=== PATIENT | female | born 1990 | race Caucasian/White ===

== ENCOUNTER 2016-05-05 00:59 | Emergency (ER) | payer OTHER ==
--- NOTE | 2016-05-05 01:36 | ED Physician Documentation ---
Abdominal Pain - HISTORIAN Historian: patient - HPI Stated Complaint: abd pain Chief Complaint: Abdominal Pain Additonal Information: Epigastric pain began yesterday. Thinks it is sharp, waxes and wanes, radiates to RUQ to right flank. Like the pain she had with her gall bladder prior to surgery. Ibuprofen 800 mg 4 hours ago improved pain. Diarrhea several times today. No nausea or fever. Gave six months ago with subsequent 6 weeks vag bleeding. No period since. No control. Onset: other (day) Context: denies: out of country travel, bad food, recent trauma Quality: sharp Associated Symptoms: diarrhea Exacerbated by: nothing Relieved by: other (above) - ROS CONST: no problems - SOCIAL HX Smoking History: cigarettes (1/2 PPD) - FAMILY HX Family History: no significant history (chronic bronchitis in smokers) - PAST HX Past History: gall stones (ashish) Ischemic Bowel Risk Factors: none Surgeries/Procedures: cholecystectomy Home Medications: Ambulatory Orders Medication Instructions Recorded Omeprazole 20 mg PO DAILY #30 capsule. 05/05/16 Allergies/Adverse Reactions: Allergies Allergy/AdvReac Type Severity Reaction Status Date / Time No Known Allergies Allergy Verified 05/05/16 01:07 - VITAL SIGNS Vital Signs: Vital Signs Temp Pulse Resp BP Pulse Ox 97.6 F 88 18 108/58 98 05/05/16 00:59 05/05/16 00:59 05/05/16 00:59 05/05/16 00:59 05/05/16 00:59 - REVIEWED ASSESSMENTS Nursing Assessment Reviewed: Yes Vitals Reviewed: Yes Progress - Progress Progress: Obstructive series with chest x-ray Clinical history: Epigastric pain radiating to the right flank. Findings: Examination of the chest single upright view demonstrates the lungs to be clear. Cardiovascular and mediastinal silhouettes are within normal limits. Examination of the abdomen in supine and upright views demonstrates gas in the colon. There is no obstruction or free air. Visualized visceral silhouettes are within normal limits. Impression: 1. Negative study. Electronically signed on May 05, 2016 2:34:44 AM CDT by: Sung Stern Pain greatly relieved by gi cocktail. All labs wnl. ED Results Lab/Radiology - Lab Results Lab Results: Lab Results 05/05/16 05/05/16 01:41 01:41 WBC 10.16 K/ul K/ul (4.00-12.00) RBC 5.04 M/ul M/ul (3.90-5.20) Hgb 14.6 g/dL g/dL (12.0-16.0) Hct 43.2 % % (34.5-46.5) MCV 85.6 fl fl (80.0-100.0) MCH 29.0 pg pg (28.0-34.0) MCHC 33.9 g/dL g/dL (30.0-36.0) RDW 14.5 % H % (11.3-14.3) Plt Count 297 K/mm3 K/mm3 (130-400) Neut % (Auto) 62.2 % % (39.0-79.0) Lymph % (Auto) 30.3 % % (16.0-50.0) Bland % (Auto) 3.8 % % (0.0-11.0) Eos % (Auto) 1.4 % % (0.0-6.8) Baso % (Auto) 0.4 (0.0-1.5) Neut # 6.3 # k/uL # k/uL (1.4-7.7) Lymph # 3.1 # k/uL # k/uL (0.6-4.0) Bland # 0.4 # k/uL # k/uL (0.0-0.9) Eos # 0.2 # k/uL # k/uL (0.0-0.6) Baso # 0.0 # k/uL # k/uL (0.0-0.5) Reactive Lymphs % 2.0 % % (0.0-5.0) Reactive Lymphs # 0.2 # k/uL # k/uL (0.0-0.8) Sodium 142 mmol/L mmol/L (136-145) Potassium 3.6 mmol/L mmol/L (3.5-5.0) Chloride 109 mmol/L mmol/L (98-110) Carbon Dioxide 28 mmol/L mmol/L (20-32) BUN 12 mg/dL mg/dL (10-26) Creatinine 0.7 mg/dL mg/dL (0.4-1.5) Estimated Creat Clear 272 Est GFR ( Amer) > 60 (60 - ) Est GFR (Non-Af Amer) > 60 (60 - ) Glucose 83 mg/dL mg/dL (70-99) Calcium 9.5 mg/dL mg/dL (8.5-10.5) Total Bilirubin 0.2 mg/dL mg/dL (0.2-1.2) AST 25 U/L U/L (0-41) ALT 35 U/L U/L (0-45) Alkaline Phosphatase 80 U/L U/L (46-116) Total Protein 7.4 g/dL g/dL (6.0-8.5) Albumin 4.6 g/dL g/dL (3.0-5.5) Amylase 35 U/L U/L (20-104) - Orders Orders: ED Orders Category Date Time Status Place Saline Lock/IV Now Care 05/05/16 01:40 Active ABD SERIES PA CHEST [RAD] Stat Exams 05/05/16 Taken AMYLASE Routine Lab 05/05/16 01:41 Completed CBC/PLATELET/DIFF Routine Lab 05/05/16 01:41 Completed CMP Routine Lab 05/05/16 01:41 Completed URINALYSIS Routine Lab 05/05/16 Ordered URINE HCG [URINE HCG] Stat Lab 05/05/16 01:25 Ordered Lidocaine 2%Visc 15ml [Xylocaine] Med 05/05/16 01:42 Discontinued 300 mg .ROUTE .STK-MED ONE Mag Hydrox/Al Hydrox/Simeth [Mylanta] 30 ml Med 05/05/16 01:32 Discontinued Lidocaine 2%Visc 15ml [Xylocaine] 20 mg PHENobarb/HYOSCY/ATROPINE/SCOP [] 10 ml PO NOW Magnesium Hydroxide/Al Hydrox [Maalox] Med 05/05/16 01:42 Discontinued 30 ml PO .STK-MED ONE Abdominal Pain Physical Exam - Physical Exam General Appearance: no acute distress, alert, other (morbidly obese) EENT: eye inspection normal, ENT inspection normal NECK: normal inspection, supple RESPIRATORY: no resp distress, breath sounds normal CVS: reg rate & rhythm, heart sounds normal ABDOMEN: soft, normal bowel sounds, non-tender RECTAL: deferred BACK: normal inspection SKIN: warm/dry, normal color EXTREMITIES: normal range of motion (gait) NEURO: CN's nml as tested, motor nml, sensation nml, cognition normal Vital Signs: Vital Signs Temp Pulse Resp BP Pulse Ox 97.6 F 88 18 108/58 98 05/05/16 00:59 05/05/16 00:59 05/05/16 00:59 05/05/16 00:59 05/05/16 00:59 Discharge Clincal Impression: Abdominal pain Qualifiers: Abdominal location: upper abdomen, unspecified Qualified Code(s): R10.10 - Upper abdominal pain, unspecified Additional Instructions: Return to the ER if you have pain you cannot control or you are unable to urinate for more than 8 hours. Home Medications: Ambulatory Orders Omeprazole 20 mg PO DAILY #30 capsule. 05/05/16 Condition: Good Disposition: 01 HOME, SELF-CARE Decision to Admit: NO Decision Time: 02:41
[2016-05-05] MEDS: MAG HYDROX/AL HYDROX/SIMETH 30 ML, Lidocaine 2%Visc 15ml 20 MG, PHENobarb/HYOSCY/ATROPI... PO ONE ×3 (01:40)
[2016-05-05] MEDS ORDERED: MAGNESIUM HYDROXIDE/AL HYDROX 30 ML UDC PO ONE (01:42)
[2016-05-05] MEDS ORDERED: Lidocaine 2%Visc 15ml 20 MG/ML UDC ONE (01:42)
[2016-05-05 02:14] LABS: BASOPHILS % 0.4 (0.0-1.5); EOSINOPHILS % 1.4 % (0.0-6.8); LYMPHOCYTES # 3.1 # k/uL (0.6-4.0); MONOCYTES # 0.4 # k/uL (0.0-0.9); MONOCYTES % 3.8 % (0.0-11.0); NEUTROPHILS # 6.3 # k/uL (1.4-7.7); eGFR (African) > 60; eGFR (Non-African) > 60
[2016-05-05] MEDS: PANTOPRAZOLE SODIUM 40 MG TABLET PO ONE (02:42)
[2016-05-05 02:56] VITALS: BP 111/59
[2016-05-05 06:02] LABS: APPEARANCE,URINE CLEAR (CLEAR); COLOR,URINE YELLOW (YELLOW)
[2016-05-05 06:03] LABS: OCCULT BLOOD,URINE TRACE-INTACT (NEGATIVE); UROBILINOGEN URINE 0.2 Eu (0.2-1.0)
--- NOTE | 2016-05-05 06:57 | Diagnostic Imaging Report ---
Report Submission Date: May 05, 2016 2:34:44 AM CDT Patient ~ Study Name: MARIANNA NELSON ~ Date: May 05, 2016 1:55:42 AM CDT ~ Modality Type: CR Gender: F ~ Description: ABDOMEN : 86 ~ Institution: [facility] Physician: KATHLEEN NELSON ~ ~ ~ ~ Obstructive series with chest x-ray Clinical history: ~Epigastric pain radiating to the right flank. Findings: ~Examination of the chest single upright view demonstrates the lungs to be clear. ~Cardiovascular and mediastinal silhouettes are within normal limits. Examination of the abdomen in supine and upright views demonstrates gas in the colon. ~There is no obstruction or free air. ~Visualized visceral silhouettes are within normal limits. Impression: 1. ~Negative study. ~ Electronically signed on May 05, 2016 2:34:44 AM CDT by: Sung HA
== END 2016-05-05 02:46 | disposition home or self-care (01) ==
LOC: ED 00:59
DX: R10.10 Upper abdominal pain, unspecified (principal)
CPT/HCPCS: 74022; 80053; 81002; 81025; 82150; 85025; A9270; 99283; S1016

== ENCOUNTER 2016-12-19 12:42 | Emergency (ER) | payer OTHER ==
--- NOTE | 2016-12-19 12:48 | ED Physician Documentation ---
General Adult - HISTORIAN Historian: patient - HPI Stated Complaint: knot under L arm Chief Complaint: General Adult Onset: days ago Timing: still present Severity: moderate Further Comments: yes (Pt is a 26 yo female with a small, tender swelling in L axilla. No fever or systemic sx.) - ROS CONST: no problems EYES/ENT: none CVS/RESP: none GI/: none MS/SKIN/LYMPH: other (small abscess L axilla) - PAST HX Past History: other (GERD) Surgeries/Procedures: cholecystectomy Allergies/Adverse Reactions: Allergies Allergy/AdvReac Type Severity Reaction Status Date / Time No Known Allergies Allergy Verified 12/19/16 13:00 Home Medications: Ambulatory Orders Medication Instructions Recorded Amoxicillin [Trimox] 500 mg PO Q12H #20 capsule 12/19/16 NK [NK] 12/19/16 - SOCIAL HX Smoking History: cigarettes - FAMILY HX Family History: No - VITAL SIGNS Vital Signs: Vital Signs Temp Pulse Resp BP Pulse Ox 111/59 05/05/16 02:48 - REVIEWED ASSESSMENTS Nursing Assessment Reviewed: Yes Vitals Reviewed: Yes Progress - Progress Progress: Rx Amoxicillin 500 mg. Take one tablet by mouth every 12 hrs for 10 days General Adult Physical Exam - PHYSICAL EXAM GENERAL APPEARANCE: no distress NECK: normal inspection, supple RESPIRATORY: no resp distress, chest non-tender, breath sounds normal CVS: reg rate & rhythm, heart sounds normal BACK: normal inspection SKIN: other (small, 1 cm, abscess, L axilla) EXTREMITIES: non-tender, normal range of motion, no evidence of injury NEURO: oriented X3, motor nml, sensation nml Discharge Clincal Impression: small abscess L axilla Prescriptions: Amoxicillin [Trimox] 500 mg PO Q12H #20 capsule Referrals: Primary Doctor,No [Primary Care Provider] - Condition: Good Disposition: 01 HOME, SELF-CARE Decision to Admit: NO Decision Time: 13:05
[2016-12-19 13:09] VITALS: BP 94/59
== END 2016-12-19 13:02 | disposition home or self-care (01) ==
LOC: ED 12:42
DX: L02.412 Cutaneous abscess of left axilla (principal)
CPT/HCPCS: 99283

== ENCOUNTER 2017-07-05 22:17 | Emergency (ER) | payer OTHER ==
--- NOTE | 2017-07-05 22:48 | ED Physician Documentation ---
Foot Injury - HISTORIAN Historian: patient - HPI Stated Complaint: "My rt foot/toes hurt" Chief Complaint: Lower Extremity Problem Additional Information: pt has chronic back pain she recently has job where she is on feet usually standing and appears to have assoc pain numbness rt fore foot. wearing CROCKS seems to help but is wearing tennis shoes at work Onset: days ago (10-15) Where: work Severity: moderate Associated Symptoms:: tingling, numbness distally Modifying Factors:: pain on movement (and standing) - ROS CONST: no problems (except morbid obesity assoc w/ ch back pain) CVS/RESP: none NEURO: denies: headache, head injury, dizziness GI/: denies: problems urinating MS/SKIN/LYMPH: back pain. denies: neck pain, foot swelling, ankle swelling, rash (chronic back pain w/obesity wt = 270 ht 5' 2 in-she h is loosing wt and back seems to be improving the foot problem std when she std this job and wears tennis shoes rather than crocks which she is accoustemed to wearing) - PAST HX Past History: other (see RASH above) Allergies/Adverse Reactions: Allergies Allergy/AdvReac Type Severity Reaction Status Date / Time No Known Allergies Allergy Verified 07/05/17 22:37 Home Medications: Ambulatory Orders Medication Instructions Recorded Atorvastatin Calcium 20 mg PO DAILY 07/05/17 - SOCIAL HX Smoking History: greater than 1 pack/day Alcohol Use: none Drug Use: none - FAMILY HX Family History: no significant history - VITAL SIGNS Vital Signs: Vital Signs Temp Pulse Resp BP Pulse Ox 97.6 F 89 12 123/59 96 07/05/17 22:30 07/05/17 22:30 07/05/17 22:30 07/05/17 22:30 07/05/17 22:30 - REVIEWED ASSESSMENTS Nursing Assessment Reviewed: Yes Vitals Reviewed: Yes Foot Injury Physical Exam - Physical Exam General Appearance: mild distress Gait: limited by pain, other (foot is w/o swelling and neurovascular appears intact--DTR equal bilat) Neuro: sensation nml, motor nml Vascular: no vascular compromise, dorsalis pedis (ok). No: pallor, cool skin, abnml cap refill Tendons: tendon function nml Leg/Knee/Thigh: No: limited ROM Skin: intact, warm. No: crepitus, diaphoresis, decubitus, dry Neck/Back: nml inspection Resp/CVS: chest non-tender, breath sounds nml, heart sounds nml Abdomen: non-tender Discharge Clincal Impression: sciatica due to ch back pain, obesity Referrals: Primary Doctor,No [Primary Care Provider] - 2 Days Comments: IBU 600 tid rec cont wt loss wear crocks if this helps-perhaps better arch in tennis shoes Condition: Good Disposition: 01 HOME, SELF-CARE Decision to Admit: NO Decision Time: 22:57
[2017-07-05 22:54] VITALS: BP 108/68
== END 2017-07-05 23:00 | disposition home or self-care (01) ==
LOC: ED 22:17
DX: M54.30 Sciatica, unspecified side (principal); M54.5 Low back pain; E66.9 Obesity, unspecified
CPT/HCPCS: 99282

== ENCOUNTER 2017-08-13 01:19 | Emergency (ER) | payer OTHER ==
[2017-08-13 01:38] VITALS: BP 117/81
--- NOTE | 2017-08-13 02:15 | ED Physician Documentation ---
Lower Extremity Problem - HPI Stated Complaint: Right foot pain Chief Complaint: Lower Extremity Problem Additional Information: Right foot pain for weeks. On her feet a lot at work. She thought crocs shoes made her feel better, but pain is worse in spite of wearing them. Saw her PCP since last visit in ER and was told to wear quality shoe with good support. No other treatments attempted. No other associated signs. Thinks she is right- footed. Location of Injury: R foot - ROS CONST: no problems - PAST HX Past History: none Allergies/Adverse Reactions: Allergies Allergy/AdvReac Type Severity Reaction Status Date / Time No Known Allergies Allergy Verified 08/13/17 01:37 Home Medications: Ambulatory Orders Medication Instructions Recorded NK [NK] 08/13/17 - SOCIAL HX Smoking History: non-smoker - FAMILY HX Family History: no significant history - VITAL SIGNS Vital Signs: Vital Signs Temp Pulse Resp BP Pulse Ox 97.8 F 85 18 117/81 98 08/13/17 01:20 08/13/17 01:20 08/13/17 01:20 08/13/17 01:20 08/13/17 01:20 - REVIEWED ASSESSMENTS Nursing Assessment Reviewed: Yes Vitals Reviewed: Yes Lower Extremity Problem - EXAM General Appearance: obese Hips: bilateral hip: no evidence of injury Legs: bilateral: no evidence of injury Knees: bilateral: no evidence of injury Ankle: bilateral: normal inspection, normal range of motion, no evidence of injury Foot: right foot: other (thin white callus formation just proximal to 1st MTP, sole of right foot. Erythema proximal to callus. tender to palpation. DP and PT 2+. ), left foot: normal inspection, no evidence of injury Neuro/Tendon: normal sensation, normal motor functions EENT: eye inspection normal, ENT inspection normal RESPIRATORY: no resp distress JOINT: joints nml, nml ROM VASCULAR: no vascular compromise NEURO/PSYCH: CN's nml as tested, motor nml, sensation nml SKIN: warm/dry, normal color BACK: normal inspection Discharge Clincal Impression: Foot pain, right Referrals: Gurwinder Kaminski MD [Primary Care Provider] - 2 Days Additional Instructions: Shoes that provide good support and stabilization, such as athletic shoes, should provide you with eventual relief. You should keep the foot elevated as much as possible when you are not at work. You can apply ice to the sore area for 30 minutes of each hour you are awake. Condition: Good Disposition: 01 HOME, SELF-CARE Decision to Admit: NO Decision Time: 02:15
== END 2017-08-13 02:25 | disposition home or self-care (01) ==
LOC: ED 01:19
DX: M79.671 Pain in right foot (principal)
CPT/HCPCS: 99282

== ENCOUNTER 2017-09-04 17:20 | Emergency (ER) | payer OTHER ==
[2017-09-04 17:33] VITALS: BP 112/66
--- NOTE | 2017-09-04 17:50 | ED Physician Documentation ---
Sore Throat/Dental Pain - HISTORIAN Historian: patient - HPI Stated Complaint: DENTAL PAIN Chief Complaint: Dental Pain Additional Information: Dental pain for two days. Has had problems with wisdom teeth in the past. Knows they will have to be surgically extracted and this can't happen till December. Has been taking 800 mg ibuprofen BID w/o relief. No recent antibiotics. No other modifying factors or associated signs. Context: Possible Infection - ROS CONST: no problems - PAST HX Past History: none Allergies/Adverse Reactions: Allergies Allergy/AdvReac Type Severity Reaction Status Date / Time No Known Allergies Allergy Verified 09/04/17 17:33 Home Medications: Ambulatory Orders Medication Instructions Recorded Acetaminophen with Codeine 1 each PO Q4H PRN #15 tablet 09/04/17 [Tylenol with Codeine #3 Tablet] Penicillin V Potassium [Pen V K] 500 mg PO Q8H #30 tablet 09/04/17 - SOCIAL HX Smoking History: non-smoker - FAMILY HX Family History: No - VITAL SIGNS Vital Signs: Vital Signs Temp Pulse Resp BP Pulse Ox 98.1 F 72 20 112/66 99 09/04/17 17:43 09/04/17 17:43 09/04/17 17:43 09/04/17 17:43 09/04/17 17:43 - REVIEWED ASSESSMENTS Nursing Assessment Reviewed: Yes Vitals Reviewed: Yes Dental Pain Physical Exam - EXAM General Appearance: alert, moderate distress Head/Neck: head nml inspection, no lymphadenopathy, other (tender to palpation over bilateral TMJ areas) Eyes: eyes nml inspection Mouth/Throat: lips nml, gums nml (except swollen about #17 and #32), voice nml, no drooling, no air way problems Ear/Nose: nml inspection Respiratory: no resp. distress Extremities: nml ROM (gait and stance) Skin: warm/dry, normal color Neuro/Psych: none Discharge Clincal Impression: Dentalgia Prescriptions: Acetaminophen with Codeine [Tylenol with Codeine #3 Tablet] 1 each PO Q4H PRN # 15 tablet PRN Reason: Pain Penicillin V Potassium [Pen V K] 500 mg PO Q8H #30 tablet Referrals: Gurwinder Kaminski MD [Primary Care Provider] - 2 Days Condition: Good Disposition: 01 HOME, SELF-CARE Decision to Admit: NO Decision Time: 17:55
== END 2017-09-04 18:05 | disposition home or self-care (01) ==
LOC: ED 17:20
DX: K02.9 Dental caries, unspecified (principal)
CPT/HCPCS: 99282

== ENCOUNTER 2017-09-13 20:05 | Emergency (ER) | payer OTHER ==
[2017-09-13] MEDS ORDERED: CLINDAMYCIN HCL 150 MG CAPSULE PO ONE (20:22)
[2017-09-13] MEDS ORDERED: HYDROcodone /APAP 5/325 1 EACH TABLET PO ONE (20:23)
--- NOTE | 2017-09-13 20:28 | ED Physician Documentation ---
General Adult - HISTORIAN Historian: patient - HPI Stated Complaint: dental pain, rash on low abd Chief Complaint: General Adult Onset: days ago Timing: still present Severity: moderate Further Comments: yes (Pt is a 27 yo female with dental pain in the R lower rear molar x 1 day. Pt has a wisdom tooth that is to be extracted, but also has dental caries with exposed dentin in the L R rear molar.) - ROS CONST: other (malaise) EYES/ENT: other (dental pain) CVS/RESP: none GI/: none MS/SKIN/LYMPH: none - PAST HX Past History: other (cholecystectomy) Surgeries/Procedures: cholecystectomy Allergies/Adverse Reactions: Allergies Allergy/AdvReac Type Severity Reaction Status Date / Time codeine AdvReac Nausea/Vomi Verified 09/13/17 20:30 ting Home Medications: Ambulatory Orders Medication Instructions Recorded Penicillin V Potassium [Pen V K] 500 mg PO Q8H #30 tablet 09/04/17 - SOCIAL HX Smoking History: cigarettes - FAMILY HX Family History: No - VITAL SIGNS Vital Signs: Vital Signs Temp Pulse Resp BP Pulse Ox 112/66 09/04/17 17:43 - REVIEWED ASSESSMENTS Nursing Assessment Reviewed: Yes Vitals Reviewed: Yes Progress - Progress Progress: Rx Clindamycin 300 mg. Take one every 12 hours for 10 days. Rx [place] (5/325). Take one or two every 4 to 6 hours as needed for moderate to severe pain. f/u dentist/oral surgeon. ED Results Lab/Radiology - Orders Orders: ED Orders Category Date Time Status Clindamycin HCl [Cleocin] Med 09/13/17 20:22 Once 300 mg PO NOW ONE HYDROcodone /APAP 5/325 [[place] 5/325] Med 09/13/17 20:23 Once 4 each PO NOW ONE General Adult Physical Exam - PHYSICAL EXAM GENERAL APPEARANCE: mild distress EENT: other (poor dentition, tenderness R Lower rear molar) NECK: normal inspection, supple RESPIRATORY: no resp distress, chest non-tender, breath sounds normal CVS: reg rate & rhythm, heart sounds normal BACK: normal inspection SKIN: warm/dry EXTREMITIES: non-tender, normal range of motion, no evidence of injury NEURO: oriented X3, motor nml, sensation nml Discharge Clincal Impression: dental pain Referrals: Gurwinder Kaminski MD [Primary Care Provider] - Condition: Stable Disposition: 01 HOME, SELF-CARE Decision to Admit: NO Decision Time: 20:28
[2017-09-13 20:37] VITALS: BP 109/60
== END 2017-09-13 20:41 | disposition home or self-care (01) ==
LOC: ED 20:05
DX: K08.89 Other specified disorders of teeth and supporting structures (principal)
CPT/HCPCS: 99283; A9270

== ENCOUNTER 2017-11-27 14:48 | Emergency (ER) | payer OTHER ==
[2017-11-27 15:00] VITALS: BP 132/84
--- NOTE | 2017-11-27 15:13 | ED Physician Documentation ---
General Adult - HISTORIAN Historian: patient - HPI Stated Complaint: dental pain Chief Complaint: General Adult Onset: hours Timing: still present Severity: moderate Further Comments: yes (Pt is a 27 yo female with dental pain in a fractured tooth in the lower R jaw. Pt has an appointment in in a few weeks, but pain flared up last night. No fever, n/v.) - ROS CONST: no problems EYES/ENT: other (dental pain) CVS/RESP: none GI/: none MS/SKIN/LYMPH: none - PAST HX Past History: other (cholecystectomy) Allergies/Adverse Reactions: Allergies Allergy/AdvReac Type Severity Reaction Status Date / Time codeine AdvReac Nausea/Vomi Verified 11/27/17 15:00 ting Home Medications: Ambulatory Orders Medication Instructions Recorded NK 11/27/17 - SOCIAL HX Smoking History: cigarettes - FAMILY HX Family History: No - VITAL SIGNS Vital Signs: Vital Signs Temp Pulse Resp BP Pulse Ox 96.6 F L 80 16 132/84 11/27/17 14:53 11/27/17 14:53 11/27/17 14:53 11/27/17 14:53 - REVIEWED ASSESSMENTS Nursing Assessment Reviewed: Yes Vitals Reviewed: Yes Progress - Progress Progress: Rx Clindamycin 300 mg. Take one every 8 hours for 10 days. Rx [place] (5/325). Take one or two every 4 to 6 hours as needed for moderate to severe pain. General Adult Physical Exam - PHYSICAL EXAM GENERAL APPEARANCE: moderate distress EENT: pharynx normal, other (fx tooth, R rear molar, tenderness) NECK: normal inspection, supple RESPIRATORY: no resp distress, chest non-tender, breath sounds normal CVS: reg rate & rhythm, heart sounds normal BACK: normal inspection SKIN: warm/dry, normal color EXTREMITIES: non-tender, normal range of motion, no evidence of injury NEURO: oriented X3, motor nml, sensation nml Discharge Clincal Impression: Pain, dental Referrals: Gurwinder Kaminski MD [Primary Care Provider] - Condition: Good Disposition: 01 HOME, SELF-CARE Decision to Admit: NO Decision Time: 15:17
== END 2017-11-27 15:17 | disposition home or self-care (01) ==
LOC: ED 14:48
DX: K08.89 Other specified disorders of teeth and supporting structures (principal)

== ENCOUNTER 2018-01-15 00:34 | Emergency (ER) | payer OTHER ==
--- NOTE | 2018-01-15 00:44 | ED Physician Documentation ---
General Adult - HISTORIAN Historian: patient - HPI Stated Complaint: right breast pain Chief Complaint: General Adult Onset: days ago (1) Timing: still present, worse Severity: mild Further Comments: no - ROS CONST: no problems EYES/ENT: none CVS/RESP: none GI/: none MS/SKIN/LYMPH: none - PAST HX Past History: none Other History: none Surgeries/Procedures: none Allergies/Adverse Reactions: Allergies Allergy/AdvReac Type Severity Reaction Status Date / Time codeine AdvReac Nausea/Vomi Verified 01/15/18 00:50 ting Home Medications: Ambulatory Orders Medication Instructions Recorded Cephalexin [Keflex] 500 mg PO TID #21 capsule 01/15/18 Omeprazole 20 mg PO DAILY 01/15/18 - SOCIAL HX Smoking History: non-smoker Alcohol Use: none Drug Use: none - FAMILY HX Family History: No - VITAL SIGNS Vital Signs: Vital Signs Temp Pulse Resp BP Pulse Ox 132/84 11/27/17 15:17 - REVIEWED ASSESSMENTS Nursing Assessment Reviewed: Yes Vitals Reviewed: Yes General Adult Physical Exam - PHYSICAL EXAM GENERAL APPEARANCE: no distress EENT: VILMA NECK: normal inspection, supple RESPIRATORY: no resp distress, breath sounds normal CVS: reg rate & rhythm, heart sounds normal ABDOMEN: soft, normal bowel sounds SKIN: warm/dry, other (right medial nipple with 5 mm round area redness/swelling) EXTREMITIES: non-tender NEURO: oriented X3, motor nml Discharge Clincal Impression: Folliculitis Prescriptions: Cephalexin [Keflex] 500 mg PO TID #21 capsule Referrals: Gurwinder Kaminski MD [Primary Care Provider] - 2 Days Condition: Stable Decision to Admit: NO Date of Decison to Admit: 01/15/18 Decision Time: 00:56
[2018-01-15 01:12] VITALS: BP 115/78
== END 2018-01-15 01:10 ==
LOC: ED 00:34
DX: L73.9 Follicular disorder, unspecified (principal)
CPT/HCPCS: 99281

== ENCOUNTER 2018-01-29 13:49 | Emergency (ER) | payer OTHER ==
[2018-01-29 14:04] VITALS: BP 138/90
[2018-01-29] MEDS ORDERED: traMADol HCL 50 MG TABLET PO ONE (14:36)
[2018-01-29] MEDS ORDERED: CLINDAMYCIN HCL 150 MG CAPSULE PO STA (14:37)
[2018-01-29] MEDS ORDERED: LIDOCAINE HCL 2% VISC. ORAL 300MG/15ML UDC PO STA (14:42)
[2018-01-29] MEDS ORDERED: ACETAMINOPHEN ORAL SOLUTION 325 MG/10.15 ML CUP PO STA (14:43)
[2018-01-29] MEDS ORDERED: LIDOCAINE HCL 2% VISC. ORAL 300MG/15ML UDC PO ONE (14:48)
--- NOTE | 2018-01-29 14:48 | ED Physician Documentation ---
Sore Throat/Dental Pain - HISTORIAN Historian: patient - HPI Stated Complaint: Dental pain Chief Complaint: Dental Pain Additional Information: Intro self as [employer]. pt presents to the ED via POV c/o dental pain x 6 months worse today. /10 aching and sharp worse with movement and cold drinks. denies other symptoms or complaints. has dental surgery scheduled for next week. pt denies current chest pain, dyspnea, syncope/near syncope, headache, dizziness, visual disturbances, n/v/d, fever/chills, rash, sick contacts, dysuria, trauma. melena or hematochezia, bleeding or easy bruising, change in bowel or bladder function, no recent weight loss/gain, anxiety or depression. ROS Negative unless otherwise specified. - ROS CONST: no problems - PAST HX Past History: none, other (dental caries ) Allergies/Adverse Reactions: Allergies Allergy/AdvReac Type Severity Reaction Status Date / Time codeine AdvReac Nausea/Vomi Verified 01/29/18 13:59 ting Home Medications: Ambulatory Orders Medication Instructions Recorded Omeprazole 20 mg PO DAILY 01/15/18 - SOCIAL HX Smoking History: less than 1 pack/day Alcohol Use: none Drug Use: none - FAMILY HX Family History: No - VITAL SIGNS Vital Signs: Vital Signs Temp Pulse Resp BP Pulse Ox 97.7 F 82 18 138/90 99 01/29/18 14:01 01/29/18 14:01 01/29/18 14:01 01/29/18 14:01 01/29/18 14:01 - REVIEWED ASSESSMENTS Nursing Assessment Reviewed: Yes Vitals Reviewed: Yes ED Results Lab/Radiology - Orders Orders: ED Orders Category Date Time Status Acetaminophen [Tylenol] Med 01/29/18 14:43 Stat 650 mg PO NOW STA Clindamycin HCl [Cleocin] Med 01/29/18 14:37 Stat 300 mg PO NOW STA Lidocaine 2%Visc 15ml [Xylocaine] Med 01/29/18 14:42 Stat 15 mg PO NOW STA traMADol HCL [Ultram] Med 01/29/18 14:36 Once 50 mg PO NOW ONE Dental Pain Physical Exam - EXAM General Appearance: no acute distress, alert Head/Neck: head nml inspection, trachea midline, no lymphadenopathy, thyroid nml, neck nml inspection. No: cervical lymphadenopathy Eyes: eyes nml inspection, PERRL Mouth/Throat: lips nml, gums nml, pharynx nml, voice nml, no drooling, no air way problems, no thrush, membranes nml, dental tenderness, gum swelling around teeth (decay at #31. mild erythema and edema localized. ) Ear/Nose: nml inspection Respiratory: no resp. distress Abdomen: soft, no organomegaly, normal bowel sounds, no abdominal bruit, no distension Extremities: non-tender, nml ROM Skin: normal color, warm/dry, NR, INT, PAL, DR Neuro/Psych: none Discharge Clincal Impression: Pain, dental, Infected dental caries Additional Instructions: Keep your appointment for dental surgery next week. Clindamycin 300 mg four times a day for 5 days. Dental Ball: Lidocaine and tylenol-soak a cotton ball in this and place in inner cheek for up to 2 hours. do not sleep with this in. seek medical care immediately if difficult to wake, difficulty breathing, feeling faint or fainting, increased rash, chest pain, shortness of breath, or fever not controlled by tylenol/motrin or any concern. follow up with primary care next week or before if not improving as expected. PLEASE UNDERSTAND THAT THIS IS AN EMERGENCY EVALUATION FOR YOUR COMPLAINT AND BY NATURE IS LIMITED AND NOT A SUBSTITUTE FOR ONGOING MEDICAL CARE. EVEN THOUGH TEST RESULTS AND TREATMENT PLAN WERE EXPLAINED THERE MAY BE A NEED FOR ADDITIONAL TESTING TO FULLY DETERMINE THE EXTENT OF YOUR ILLNESS/INJURY/OR CONCERN SO YOU SHOULD CONTACT AND OR ESTABLISH WITH A PRIMARY CARE PROVIDER (OR REFERRAL DOCTOR IF APPLICABLE) FOR AN APPOINTMENT SOON POSSIBLE Condition: Good Disposition: 01 HOME, SELF-CARE Decision to Admit: NO Date of Decison to Admit: 01/29/18 Decision Time: 14:51
[2018-01-29] MEDS ORDERED: LIDOCAINE HCL 2% VISC. ORAL 300MG/15ML UDC ONE (14:50)
== END 2018-01-29 15:07 | disposition home or self-care (01) ==
LOC: ED 13:49
DX: K02.9 Dental caries, unspecified (principal); K04.7 Periapical abscess without sinus
CPT/HCPCS: 99282; 99283; A9270

== ENCOUNTER 2018-02-08 08:16 | Emergency (ER) | payer OTHER ==
[2018-02-08 08:42] VITALS: BP 116/81
[2018-02-08] MEDS ORDERED: LIDOCAINE HCL 2% VISC. ORAL 300MG/15ML UDC PO ONE (08:45)
[2018-02-08] MEDS ORDERED: ACETAMINOPHEN ORAL SOLUTION 325 MG/10.15 ML CUP PO ONE (08:45)
--- NOTE | 2018-02-08 08:47 | ED Physician Documentation ---
Sore Throat/Dental Pain - HISTORIAN Historian: patient - HPI Stated Complaint: Dental pain Chief Complaint: Dental Pain Additional Information: Patient presents to ED with left lower jaw pain after having both lower wisdom teeth pulled a week ago. She states she tried to smoke some cigarettes but could not do it due to the pain. She has used up 25 Azle tablets and started using Ibupprofen for the pain. She is still on Clindamycin. Context: Other (wisdom tooth extraction. ) Associated Symptoms: denies: fever Worsened By: heat, cold - ROS CONST: denies: no problems CVS/RESP: none GI/: denies: nausea, vomiting MS/SKIN/LYMPH: denies: muscle aches, rash NEURO/PSYCH: denies: headache - PAST HX Past History: dental surgery Allergies/Adverse Reactions: Allergies Allergy/AdvReac Type Severity Reaction Status Date / Time codeine AdvReac Nausea/Vomi Verified 02/08/18 08:34 ting Home Medications: Ambulatory Orders Medication Instructions Recorded Clindamycin HCl 300 mg PO Q8H 02/08/18 - SOCIAL HX Smoking History: cigarettes, greater than 1 pack/day Alcohol Use: none Drug Use: none - FAMILY HX Family History: No - VITAL SIGNS Vital Signs: Vital Signs Temp Pulse Resp BP Pulse Ox 97.2 F L 69 18 116/81 99 02/08/18 08:37 02/08/18 08:37 02/08/18 08:37 02/08/18 08:37 02/08/18 08:37 - REVIEWED ASSESSMENTS Nursing Assessment Reviewed: Yes Vitals Reviewed: Yes ED Results Lab/Radiology - Orders Orders: ED Orders Category Date Time Status Acetaminophen [Tylenol] Med 02/08/18 08:45 Once 325 mg PO NOW ONE Lidocaine 2%Visc 15ml [Xylocaine] Med 02/08/18 08:45 Once 15 mg PO NOW ONE Dental Pain Physical Exam - EXAM General Appearance: no acute distress, alert Head/Neck: mandibular swelling (L) Eyes: PERRL Mouth/Throat: dental tenderness (left lower jaw). No: voice nml, no drooling Respiratory: no resp. distress, breath sounds nml CVS: reg. rate & rhythm, heart sounds nml Abdomen: soft Extremities: non-tender Skin: warm/dry, normal color Neuro/Psych: none Discharge Clincal Impression: Pain, dental Referrals: Gurwinder Kaminski MD [Primary Care Provider] - 2 Days Additional Instructions: 1. Apply dental balls as needed for pain 2. Tylenol and/or ibuprofen may be taken as needed in addition to Tramadol 3. Continue to take Clindamycin 4. Follow up Dentist as soon as possible 5. Return to ED for new or worsening symptoms. Condition: Stable Disposition: 01 HOME, SELF-CARE Decision to Admit: NO Date of Decison to Admit: 02/08/18 Decision Time: 08:54
== END 2018-02-08 09:04 | disposition home or self-care (01) ==
LOC: ED 08:16
DX: K08.89 Other specified disorders of teeth and supporting structures (principal); Z98.818 Other dental procedure status; Z72.0 Tobacco use
CPT/HCPCS: 99282; 99283; A9270

== ENCOUNTER 2018-02-21 14:40 | Emergency (ER) | payer OTHER ==
--- NOTE | 2018-02-21 14:50 | ED Physician Documentation ---
General Adult - HISTORIAN Historian: patient - HPI Stated Complaint: reflux Chief Complaint: General Adult Onset: days ago (2) Timing: still present Severity: mild Further Comments: yes (reports she had one episode of vomiting yesterday am and has had "a few " loose stools. Denies any fever. No nausea currently but after food. She states she is sure this is her reflux due to being out of her meds. She has an upcoming appt with her PCP for a prescription. No other complaints) Last known Well Code/Unknown Code: Unknown - ROS CONST: no problems CVS/RESP: none GI/: abdominal pain, nausea, diarrhea. denies: problems urinating MS/SKIN/LYMPH: denies: rash NEURO/PSYCH: headache - PAST HX Past History: other (GERD ) Immunizations: UTD Allergies/Adverse Reactions: Allergies Allergy/AdvReac Type Severity Reaction Status Date / Time codeine AdvReac Nausea/Vomi Verified 02/08/18 08:34 ting Home Medications: Ambulatory Orders Medication Instructions Recorded Clindamycin HCl 300 mg PO Q8H 02/08/18 Tramadol HCl [Ultram] 50 mg PO TID #15 tablet 02/08/18 - SOCIAL HX Smoking History: cigarettes Alcohol Use: none Drug Use: none - FAMILY HX Family History: No - VITAL SIGNS Vital Signs: Vital Signs Temp Pulse Resp BP Pulse Ox 116/81 02/08/18 09:04 - REVIEWED ASSESSMENTS Nursing Assessment Reviewed: Yes Vitals Reviewed: Yes General Adult Physical Exam - PHYSICAL EXAM GENERAL APPEARANCE: no distress EENT: eye inspection normal, ENT inspection normal, no signs of dehydration NECK: normal inspection RESPIRATORY: no resp distress, chest non-tender, breath sounds normal CVS: reg rate & rhythm, heart sounds normal, equal pulses ABDOMEN: soft, normal bowel sounds, no distension, non-tender BACK: normal inspection SKIN: warm/dry, normal color EXTREMITIES: non-tender, normal range of motion, no edema NEURO: oriented X3 Discharge Clincal Impression: Reflux esophagitis Referrals: Gurwinder Kaminski MD [Primary Care Provider] - 2 Days Comments: 1. Omperazole 20 mg take 1 by mouth daily 2. Zofran 4 mg take 1 by mouth every 8 hours as needed for nausea 3. Increase fluids 4. Cross diet 5. Follow up with PCP for prescriptions 6. Return to ER for any concerns Condition: Stable Disposition: HOME, SELF-CARE Decision to Admit: NO Date of Decison to Admit: 02/21/18 Decision Time: 15:06
[2018-02-21 15:01] VITALS: BP 104/72
== END 2018-02-21 15:20 | disposition home or self-care (01) ==
LOC: ED 14:40
DX: K21.0 Gastro-esophageal reflux disease with esophagitis (principal)
CPT/HCPCS: 99281; 99282

== ENCOUNTER 2018-06-28 00:38 | Emergency (ER) | payer SELFPAY ==
[2018-06-28] MEDS ORDERED: traMADol HCL 50 MG TABLET PO ONE (01:13)
--- NOTE | 2018-06-28 01:15 | ED Physician Documentation ---
Abdominal Pain - HPI Stated Complaint: Right Flank Pain Chief Complaint: Abdominal Pain Additonal Information: Patient is a 28-year-old female who presents to the ER with c/o right sided abdominal pain. She states that it feels just like PCOS flare up. She states that she has been having irregular menses- She is a 1 para 1 and had to do fertility. She wants to have another child. We discussed importance of following up with OB to follow up on PCOS- she is only requesting something for discomfort until she can follow up. Onset: hours Duration: waxing, waning Timing: better Context: denies: out of country travel Severity: mild Quality: cramping Associated Symptoms: none Exacerbated by: nothing Relieved by: nothing - ROS CONST: no problems GI/: none CVS/RESP: none EYES/ENT: none MS/SKIN/LYMPH: none NEURO/PSYCH: none - SOCIAL HX Smoking History: less than 1 pack/day Alcohol Use: none Drug Use: none - FAMILY HX Family History: none - PAST HX Past History: bladder infection, other (PCOS) Ischemic Bowel Risk Factors: none Other History: ovarian cyst(s) Surgeries/Procedures: cholecystectomy Immunizations: UTD Home Medications: Ambulatory Orders Medication Instructions Recorded Clindamycin HCl 300 mg PO Q8H 02/08/18 Tramadol HCl [Ultram] 50 mg PO TID #15 tablet 02/08/18 Allergies/Adverse Reactions: Allergies Allergy/AdvReac Type Severity Reaction Status Date / Time codeine AdvReac Nausea/Vomi Verified 06/28/18 01:16 ting - VITAL SIGNS Vital Signs: Vital Signs Temp Pulse Resp BP Pulse Ox 98.0 F 80 16 108/68 98 06/28/18 01:20 06/28/18 01:20 06/28/18 01:20 06/28/18 01:20 06/28/18 01:20 - REVIEWED ASSESSMENTS Nursing Assessment Reviewed: Yes Vitals Reviewed: Yes ED Results Lab/Radiology - Orders Orders: ED Orders Category Date Time Status traMADol HCL [Ultram] Med 06/28/18 01:13 Discontinued 100 mg PO NOW ONE Abdominal Pain Physical Exam - Physical Exam General Appearance: no acute distress, alert EENT: eye inspection normal, ENT inspection normal, pharynx normal, VILMA NECK: normal inspection, supple RESPIRATORY: breath sounds normal CVS: heart sounds normal ABDOMEN: normal bowel sounds BACK: normal inspection SKIN: warm/dry, normal color EXTREMITIES: non-tender, normal range of motion NEURO: oriented X3, CN's nml as tested, motor nml, sensation nml, mood/affect nml, cognition normal Vital Signs: Vital Signs Temp Pulse Resp BP Pulse Ox 98.0 F 80 16 108/68 98 06/28/18 01:20 06/28/18 01:20 06/28/18 01:20 06/28/18 01:20 06/28/18 01:20 Discharge Clincal Impression: Polycystic ovarian syndrome Referrals: Gurwinder Kaminski MD [Primary Care Provider] - 2 Days Additional Instructions: Increase fluid intake (no caffeine) Tramadol 50mg 1 tab by mouth every 6 hours as needed for pain Follow up with OB next week Condition: Good Disposition: 01 HOME, SELF-CARE Decision to Admit: NO Decision Time: 05:04
[2018-06-28 01:24] VITALS: BP 108/68
[2018-06-28 06:42] LABS: APPEARANCE,URINE CLEAR (CLEAR); COLOR,URINE YELLOW (YELLOW); OCCULT BLOOD,URINE 2+ (NEGATIVE); UROBILINOGEN URINE 0.2 Eu (0.2-1.0)
== END 2018-06-28 01:20 | disposition home or self-care (01) ==
LOC: ED 00:38
DX: E28.2 Polycystic ovarian syndrome (principal)
CPT/HCPCS: 81002; 99283

== ENCOUNTER 2018-09-03 17:22 | Emergency (ER) | payer SELFPAY ==
[2018-09-03 17:38] VITALS: BP 137/102
--- NOTE | 2018-09-03 17:39 | ED Physician Documentation ---
General Adult - HISTORIAN Historian: patient - HPI Stated Complaint: BLE pain Chief Complaint: General Adult Onset: days ago Timing: still present Severity: moderate Further Comments: yes (Pt is a 28 yo female with c/o b/l foot pain x 3 days. She says the bottoms of her feet have become red and warm and itchy. The skin is broken on medial side of her L foot.) - ROS CONST: no problems EYES/ENT: none CVS/RESP: none GI/: none MS/SKIN/LYMPH: other (red, itchy tender feet) - PAST HX Past History: other (GERD) Surgeries/Procedures: cholecystectomy Allergies/Adverse Reactions: Allergies Allergy/AdvReac Type Severity Reaction Status Date / Time codeine AdvReac Nausea/Vomi Verified 09/03/18 17:33 ting Home Medications: Ambulatory Orders Medication Instructions Recorded Cephalexin [Keflex] 500 mg PO TID #30 capsule 09/03/18 - SOCIAL HX Smoking History: cigarettes - FAMILY HX Family History: No - VITAL SIGNS Vital Signs: Vital Signs Temp Pulse Resp BP Pulse Ox 93 H 20 137/102 97 09/03/18 17:30 09/03/18 17:30 09/03/18 17:30 09/03/18 17:30 - REVIEWED ASSESSMENTS Nursing Assessment Reviewed: Yes Vitals Reviewed: Yes Progress - Progress Progress: Use [id number] medication such as Lamisil on your feet. Use as directed. Rx Keflex 500 mg. Take one every 8 hours for 10 days. General Adult Physical Exam - PHYSICAL EXAM GENERAL APPEARANCE: mild distress NECK: normal inspection, supple RESPIRATORY: no resp distress, chest non-tender, breath sounds normal CVS: reg rate & rhythm, heart sounds normal BACK: normal inspection, no CVA tenderness SKIN: other (b/l erythema, soles of feet. The skin is broken medial aspect of L foot) EXTREMITIES: normal range of motion, no edema NEURO: oriented X3, motor nml, sensation nml Discharge Clincal Impression: Foot pain, bilateral, athletes foot, skin abrasion Prescriptions: Cephalexin [Keflex] 500 mg PO TID #30 capsule Referrals: Gurwinder Kaminski MD [Primary Care Provider] - 2 Days Condition: Stable Disposition: 01 HOME, SELF-CARE Decision to Admit: NO Decision Time: 17:44
== END 2018-09-03 18:03 | disposition home or self-care (01) ==
LOC: ED 17:22
DX: M79.671 Pain in right foot (principal); M79.672 Pain in left foot; B35.3 Tinea pedis; T14.8XXA Other injury of unspecified body region, initial encounter; X58.XXXA Exposure to other specified factors, initial encounter
CPT/HCPCS: 99283

== ENCOUNTER 2018-10-21 14:00 | Emergency (ER) | payer SELFPAY ==
--- NOTE | 2018-10-21 14:05 | ED Physician Documentation ---
General Adult - HISTORIAN Historian: patient - HPI Stated Complaint: right sided dental pain - broken tooth Chief Complaint: Dental Pain Onset: days ago (2) Timing: still present Severity: mild Further Comments: yes (She states she has had issues with this top back right tooth for a while and a few weeks ago the tooth did break. She has had increasing pain over the last two days. Pain and mild swelling. She did take OTC meds earlier this am with mild relief. No fever. No drainage noted. She is awaiting her dental insurance to "kick in" so she can make appt) Last known Well Code/Unknown Code: Unknown - ROS CONST: no problems MS/SKIN/LYMPH: none NEURO/PSYCH: denies: headache - PAST HX Past History: none Surgeries/Procedures: none Immunizations: UTD Allergies/Adverse Reactions: Allergies Allergy/AdvReac Type Severity Reaction Status Date / Time No Known Allergies Allergy Verified 10/21/18 14:11 Home Medications: Ambulatory Orders Medication Instructions Recorded NK 10/21/18 - SOCIAL HX Smoking History: non-smoker Alcohol Use: none Drug Use: none - FAMILY HX Family History: No - VITAL SIGNS Vital Signs: Vital Signs Temp Pulse Resp BP Pulse Ox 137/102 09/03/18 18:03 - REVIEWED ASSESSMENTS Nursing Assessment Reviewed: Yes Vitals Reviewed: Yes General Adult Physical Exam - PHYSICAL EXAM GENERAL APPEARANCE: no distress EENT: eye inspection normal, no signs of dehydration, other (right tooth with broken pieces and no swelling. No drainage ) RESPIRATORY: no resp distress, chest non-tender, breath sounds normal CVS: reg rate & rhythm, heart sounds normal ABDOMEN: soft, no distension BACK: normal inspection SKIN: warm/dry, normal color EXTREMITIES: non-tender NEURO: oriented X3 Discharge Clincal Impression: Broken tooth with complication Qualifiers: Encounter type: initial encounter Fracture type: closed Qualified Code(s): S02.5XXA - Fracture of tooth (traumatic), initial encounter for closed fracture Referrals: Gurwinder Kaminski MD [Primary Care Provider] - 2 Days Comments: 1. Amoxicillin 875 mg take 1 by mouth twice daily x 10 days 2. Warm salt water gargles 3. Follow up with Dentist 4. Return to ER for any increased concerns Condition: Stable Disposition: 01 HOME, SELF-CARE Decision to Admit: NO (t) Date of Decison to Admit: 10/21/18 Decision Time: 14:23
[2018-10-21 14:11] VITALS: BP 119/73
[2018-10-21] MEDS: KETOROLAC TROMETHAMINE 60 MG/2 ML VIAL IM ONE (14:19)
== END 2018-10-21 14:25 | disposition home or self-care (01) ==
LOC: ED 14:00
DX: S02.5XXA Fracture of tooth (traumatic), initial encounter for closed fracture (principal); X58.XXXA Exposure to other specified factors, initial encounter
CPT/HCPCS: 96372; 99284; J1885

== ENCOUNTER 2018-11-08 22:19 | Emergency (ER) | payer SELFPAY ==
[2018-11-08 22:50] VITALS: BP 135/90
--- NOTE | 2018-11-08 22:59 | ED Physician Documentation ---
General Adult - HISTORIAN Historian: patient - HPI Stated Complaint: WOUND Chief Complaint: General Adult Onset: days ago Timing: still present Severity: moderate Further Comments: yes (Pt is a 28 yo obese female with chronic problem of yeast infection below her abdomina pannus. Pt has used Nystatin cream periodically for this problem. Today she has a small 1 cm excoriation on the R side of abd wall. It is superficial.) - ROS CONST: no problems EYES/ENT: none CVS/RESP: none GI/: none MS/SKIN/LYMPH: rash (abdomen, small open area 1 cm.) - PAST HX Past History: other (obesity) Allergies/Adverse Reactions: Allergies Allergy/AdvReac Type Severity Reaction Status Date / Time No Known Allergies Allergy Verified 11/08/18 22:51 Home Medications: Ambulatory Orders Medication Instructions Recorded NK 10/21/18 - SOCIAL HX Smoking History: cigarettes - FAMILY HX Family History: No - VITAL SIGNS Vital Signs: Vital Signs Temp Pulse Resp BP Pulse Ox 98.6 F 72 20 135/90 98 11/08/18 22:20 11/08/18 22:20 11/08/18 22:20 11/08/18 22:20 11/08/18 22:20 - REVIEWED ASSESSMENTS Nursing Assessment Reviewed: Yes Vitals Reviewed: Yes Progress - Progress Progress: Pt has used Nystatin cream periodically for chronic topical yeast below abd pannus. Will try ointment formulation for better effect. Pt may ust OTC topical abx for small excoriation. D/c instrutions: Rx Nystatin (100,000 units/gm) topical ointment. 30 gm tube with 4 refills. Apply to affected area 2 or 3 times daily. Apply topical antibiotic such as Neosporin, Bacitracin, or Triple Antibiotic to small open area. General Adult Physical Exam - PHYSICAL EXAM GENERAL APPEARANCE: mild distress NECK: normal inspection, supple RESPIRATORY: no resp distress, chest non-tender, breath sounds normal CVS: reg rate & rhythm, heart sounds normal ABDOMEN: soft, no organomegaly, normal bowel sounds BACK: normal inspection, no CVA tenderness SKIN: other (topical yeast infection abdominal wall under pannus, 1 cm ulceration/excoriation L abd wall) EXTREMITIES: non-tender, normal range of motion, no evidence of injury NEURO: oriented X3, motor nml, sensation nml Discharge Clincal Impression: topical fungal infection abd wall, small ulceration, abd wall Referrals: Gurwinder Kaminski MD [Primary Care Provider] - Condition: Stable Disposition: 01 HOME, SELF-CARE Decision to Admit: NO Decision Time: 23:00
== END 2018-11-08 22:50 | disposition home or self-care (01) ==
LOC: ED 22:19
DX: K25.9 Gastric ulcer, unspecified as acute or chronic, without hemorrhage or perforation (principal); F17.210 Nicotine dependence, cigarettes, uncomplicated; B36.9 Superficial mycosis, unspecified
CPT/HCPCS: 99281; 99282

== ENCOUNTER 2019-01-09 15:38 | Emergency (ER) | payer SELFPAY ==
[2019-01-09 15:50] VITALS: BP 129/103
[2019-01-09] MEDS ORDERED: KETOROLAC TROMETHAMINE 60 MG/2 ML VIAL IM ONE (16:06)
--- NOTE | 2019-01-09 16:09 | ED Physician Documentation ---
Sore Throat/Dental Pain - HISTORIAN Historian: patient - HPI Stated Complaint: left sided toothpain Chief Complaint: Dental Pain Onset: days ago Context: Fractured Tooth, Dental Caries Further Comments: yes (28 year old female presents with right upper molar pain, reports taking ibuprofen with no relief.) - ROS CONST: no problems CVS/RESP: none GI/: denies: problems urinating, nausea, vomiting, other MS/SKIN/LYMPH: denies: muscle aches, rash, leg swelling, ankle swelling, other NEURO/PSYCH: none - PAST HX Past History: gum disease Other History: other (PCOS; morbid obesity) Allergies/Adverse Reactions: Allergies Allergy/AdvReac Type Severity Reaction Status Date / Time No Known Allergies Allergy Verified 01/09/19 15:48 Home Medications: Ambulatory Orders Medication Instructions Recorded Ibuprofen 800 mg PO TID #15 tablet 01/09/19 Penicillin V Potassium [Pen V K] 500 mg PO QID #28 tablet 01/09/19 - SOCIAL HX Smoking History: non-smoker - FAMILY HX Family History: No - VITAL SIGNS Vital Signs: Vital Signs Temp Pulse Resp BP Pulse Ox 99.1 F 96 H 20 129/103 98 01/09/19 15:43 01/09/19 15:43 01/09/19 15:43 01/09/19 15:43 01/09/19 15:43 - REVIEWED ASSESSMENTS Nursing Assessment Reviewed: Yes Vitals Reviewed: Yes ED Results Lab/Radiology - Orders Orders: ED Orders Category Date Time Status Ketorolac Tromethamine [Toradol] Med 01/09/19 16:06 Once 60 mg IM NOW ONE Dental Pain Physical Exam - EXAM General Appearance: moderate distress Mouth/Throat: widespread dental decay, other (fractured tooth #15; erythema and edema around tooth. ) Respiratory: no resp. distress CVS: reg. rate & rhythm Neuro/Psych: none Discharge Clincal Impression: Dentalgia, Dental caries Prescriptions: Ibuprofen 800 mg PO TID #15 tablet Penicillin V Potassium [Pen V K] 500 mg PO QID #28 tablet Referrals: Gurwinder Kaminski MD [Primary Care Provider] - 2 Days Additional Instructions: Dental Pain A prescription for ibuprofen and an antibiotic has been written. Pick them up today Tylenol 650-1000mg every 4 hours as needed for pain, limit your dose to 4G in 24 hours. Over the counter DenTek - follow package directions. Over the counter Orajel as needed for pain See your dentist as soon as possible Condition: Stable Disposition: 01 HOME, SELF-CARE Decision to Admit: NO Decision Time: 16:09
== END 2019-01-09 16:19 | disposition home or self-care (01) ==
LOC: ED 15:38
DX: K02.9 Dental caries, unspecified (principal)
CPT/HCPCS: 99283

== ENCOUNTER 2019-02-01 13:59 | Outpatient (CLI) | payer SELFPAY | END 2019-02-01 14:04 | LOC: LAB 13:59 | DX: Z31.9 Encounter for procreative management, unspecified (principal) | CPT/HCPCS: 36415; 84702 ==

== ENCOUNTER 2019-02-03 00:57 | Emergency (ER) | payer SELFPAY ==
--- NOTE | 2019-02-03 01:19 | ED Physician Documentation ---
Abdominal Pain - HISTORIAN Historian: patient - HPI Stated Complaint: lower abd pain, diarrhea Chief Complaint: Abdominal Pain Additonal Information: Patient presents to ED with a 1.5 hour history of lower abdominal pain and diarr hea x 3 stools. Patient states she is but unsure of how far along, could be 4-10 weeks. She denies any cramping, spotting or vaginal discharge. Onset: hours (1.5) Duration: waxing, waning Timing: still present Context: denies: out of country travel Severity: mild Quality: aching, dull Associated Symptoms: none Relieved by: supine - ROS CONST: no problems GI/: none CVS/RESP: none EYES/ENT: none MS/SKIN/LYMPH: none NEURO/PSYCH: none - SOCIAL HX Smoking History: cigarettes Alcohol Use: none Drug Use: none - FAMILY HX Family History: none - PAST HX Past History: none Ischemic Bowel Risk Factors: none Other History: none Surgeries/Procedures: none Home Medications: Ambulatory Orders Medication Instructions Recorded Ondansetron HCl Rapdis [Zofran Odt] 4 mg PO Q8 PRN #20 tab 02/03/19 Allergies/Adverse Reactions: Allergies Allergy/AdvReac Type Severity Reaction Status Date / Time No Known Allergies Allergy Verified 02/03/19 01:22 - VITAL SIGNS Vital Signs: Vital Signs Temp Pulse Resp BP Pulse Ox 98.2 F 81 14 102/61 99 02/03/19 01:00 02/03/19 01:00 02/03/19 01:00 02/03/19 01:00 02/03/19 01:00 - REVIEWED ASSESSMENTS Nursing Assessment Reviewed: Yes Vitals Reviewed: Yes ED Results Lab/Radiology - Lab Results Lab Results: ua - negative for infection Hcg - positive Abdominal Pain Physical Exam - Physical Exam General Appearance: no acute distress, alert EENT: VILMA NECK: normal inspection RESPIRATORY: no resp distress, breath sounds normal CVS: reg rate & rhythm, no murmur ABDOMEN: soft, normal bowel sounds, non-tender BACK: normal inspection SKIN: warm/dry EXTREMITIES: non-tender, no edema NEURO: oriented X3, mood/affect nml Vital Signs: Vital Signs Temp Pulse Resp BP Pulse Ox 98.2 F 81 14 102/61 99 02/03/19 01:00 02/03/19 01:00 02/03/19 01:00 02/03/19 01:00 02/03/19 01:00 Discharge Clincal Impression: Abdominal pain Qualifiers: Abdominal location: generalized Qualified Code(s): R10.84 - Generalized abdominal pain Referrals: Gurwinder Kaminski MD [Primary Care Provider] - 2 Days Additional Instructions: 1. Zofran every 8 hours as needed for nausea 2. Tylenol as needed for pain 3. Take Thyroid medication daily for optimal development 4. Follow up with maintenance repairer on 02/15/19 as already scheduled 5. Return to ER for new or worsening symptoms Condition: Stable Disposition: 01 HOME, SELF-CARE Decision to Admit: NO Date of Decison to Admit: 02/03/19 Decision Time: 01:34
[2019-02-03 01:29] VITALS: BP 102/61
[2019-02-03] MEDS: ONDANSETRON HCL 4 MG TAB.RAPDIS PO ONE (01:52)
[2019-02-03 06:45] LABS: APPEARANCE,URINE CLEAR (CLEAR); COLOR,URINE YELLOW (YELLOW); OCCULT BLOOD,URINE TRACE (NEGATIVE); UROBILINOGEN URINE 0.2 Eu (0.2-1.0)
== END 2019-02-03 01:36 | disposition home or self-care (01) ==
LOC: ED 00:57
DX: O26.891 Other specified pregnancy related conditions, first trimester (principal); R10.84 Generalized abdominal pain; Z3A.01 Less than 8 weeks gestation of pregnancy
CPT/HCPCS: 81002; 81025; A9270